=== PATIENT | female | born 1965 | race Caucasian/White ===

== ENCOUNTER 2019-07-31 11:47 | Emergency (ER) | payer OTHER ==
[~2019-07-31] VITALS: Ht 160 cm; Wt 54.5 kg
--- NOTE | 2019-07-31 12:23 | NUR ---
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 JOANIE
--- NOTE | 2019-07-31 13:20 | NUR ---
patient malawian only speaking. i speak malawian. 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 after she continued filed papers at work and they sent her here, she has pain in her left breast that she reports feeling like a "snap" or broken bone in her left breast. hurts with motion
[2019-07-31] MEDS ORDERED: DIAZEPAM 5 MG TABLET PO ONE (14:00)
[2019-07-31] MEDS ORDERED: KETOROLAC 30 MG/1 ML IM ONE (14:00)
[2019-07-31 14:10] LABS: BASOPHILS # (AUTO) 0.04 x10^3/uL (0-0.1); BASOPHILS % (AUTO) 1 % (0-1); EOSINOPHILS # (AUTO) 0.13 x10^3/uL (0-0.4); EOSINOPHILS % (AUTO) 2 % (1-7); LYMPHOCYTES # (AUTO) 2.18 x10^3/uL (1-3.4); LYMPHOCYTES % (AUTO) 36 % (22-44); MD NO; MEAN CORPUSCULAR HGB CONC 33.5 g/dL (32.4-35.8); MEAN CORPUSCULAR VOLUME 83.5 fL (80-100); MEAN PLATELET VOLUME 7.9 fL (7.4-10.4); MONOCYTES # (AUTO) 0.41 x10^3/uL (0.2-0.8); MONOCYTES % (AUTO) 7 % (2-9); NEUTROPHILS % (AUTO) 55 % (42-75); PLATELET COUNT 284 x10^3/uL (130-400); RED BLOOD COUNT 4.77 x10^6/uL (3.82-5.3); RED CELL DISTRIBUTION WIDTH 14.7 % (9.6-15.2)
[2019-07-31 14:14] LABS: ALANINE AMINOTRANSFERASE 38 U/L (12-78); ALBUMIN 3.6 g/dL (3.4-5.0); CALCIUM 8.2 mg/dL (8.5-10.1); CHLORIDE 111 mmol/L (98-107); CREATININE 0.64 mg/dL (0.55-1.02)
[2019-07-31 14:16] LABS: ALKALINE PHOSPHATASE 168 U/L (45-117); BILIRUBIN,TOTAL 0.3 mg/dL (0.2-1.0); TOTAL PROTEIN 7.8 g/dL (6.4-8.2); TROPONIN I < 0.015 ng/mL (0.000-0.045)
[2019-07-31] MEDS ORDERED: DIAZEPAM 5 MG TABLET ONE (14:22)
[2019-07-31] MEDS ORDERED: KETOROLAC 30 MG/1 ML ONE (14:22)
[2019-07-31 14:23] LABS: ANION GAP 4 mmol/L (5-15)
[2019-07-31 14:54] VITALS: BP 125/78
--- NOTE | 2019-07-31 14:55 | NUR ---
discharge information reviewed, shows understanding.
== END 2019-07-31 15:38 | disposition home or self-care (01) ==
LOC: ED 15:32
DX: S20.212A Contusion of left front wall of thorax, initial encounter (principal); M54.2 Cervicalgia; W18.30XA Fall on same level, unspecified, initial encounter; Y93.89 Activity, other specified; Y92.69 Other specified industrial and construction area as the place of occurrence of the external cause; Y99.0 Civilian activity done for income or pay
CPT/HCPCS: 36415; 71046; 71101; 72020; 72050; 80053; 84484; 85025; 93005; 96372; 99285; J1885

== ENCOUNTER 2019-08-04 15:44 | Emergency (ER) | payer SELFPAY ==
[~2019-08-04] VITALS: Ht 154.9 cm; Wt 55.1 kg
[2019-08-04 15:49] VITALS: BP 107/70
--- NOTE | 2019-08-04 19:29 | NUR ---
pt not in lobby
--- NOTE | 2019-08-04 19:31 | NUR ---
pt signed out ama at reg desk
== END 2019-08-04 19:32 | disposition left against medical advice (07) ==
LOC: ED 19:27
DX: R07.81 Pleurodynia (principal)
CPT/HCPCS: 93005; 99283